=== PATIENT | female | born 1975 | race Caucasian/White ===

== ENCOUNTER → 2016-12-08 | Outpatient (CLI) | payer OTHER ==
--- NOTE | 2016-12-09 09:25 | REP ---
MR LUMBAR SPINE WITHOUT CONTRAST: HISTORY: Back pain. Decreased signal intensity on T2-weighted images is present in the L4-5 and L5-S1 intervertebral discs. The discs are decreased in height. These findings are consistent with disc degeneration. There is no disc bulge or herniation at the L1-2 level. The L1 nerves exit the neural foramina without compression. A diffuse disc bulge is present at the L2-3 level. There is minimal compression of the thecal sac. The L2 nerves exit the neural foramina without compression. A diffuse disc bulge is present at the L3-4 level. There is minimal compression of the thecal sac. The L3 nerves exit the neural foramina without compression. A diffuse disc bulge is present at the L4-5 level. There is hypertrophy of the ligamenta flava and the posterior articulating facets. These findings produce minimal central canal stenosis. The L4 nerves exit the neural foramina without compression. A diffuse disc bulge and small left paracentral and intraforaminal disc protrusion are present at the L5-S1 level. There is minimal compression of the thecal sac and left S1 nerve as it exits the thecal sac. There is hypertrophy of the posterior articulating facets. There is compression of left L5 nerve in the neural foramen. The right L5 nerve exits the neural foramen without compression. The conus medullaris is normal in appearance terminating at the level of the L1 vertebral body. Increased signal intensity on T2-weighted images is present in the endplates of the L5 and S1 vertebral bodies. This represents degenerative change. A hemangioma is present in the L3 vertebral body. IMPRESSION: 1. Diffuse disc bulges at the L2-3 and L3-4 levels with minimal thecal sac compression. 2. Minimal central canal stenosis at the L4-5 level secondary to disc bulge, ligamentous and facet hypertrophy. 3. Diffuse disc bulge and small left paracentral and intraforaminal disc protrusion at the L5-S1 level with minimal compression of the thecal sac and left S1 nerve as it exits the thecal sac. There is compression of the left L5 nerve in the neural foramen. Signed by Neptali Lai MD 12/09/2016 09:32 A
== END ==
LOC: M RAD 16:11
PROVIDERS: ATTEND Physician Assistant
DX: M54.5 Low back pain (principal)